=== PATIENT | female | born 1950 | race Caucasian/White ===

== ENCOUNTER 2019-02-23 17:27 | Emergency (ER) | payer MEDICARE | END 2019-02-23 18:50 | disposition home or self-care (01) | LOC: NAV ERS 17:27 | DX: S32.009A Unspecified fracture of unspecified lumbar vertebra, initial encounter for closed fracture (principal); E11.9 Type 2 diabetes mellitus without complications; E78.5 Hyperlipidemia, unspecified; E78.00 Pure hypercholesterolemia, unspecified; I10 Essential (primary) hypertension; F41.9 Anxiety disorder, unspecified; Z79.899 Other long term (current) drug therapy; X50.0XXA Overexertion from strenuous movement or load, initial encounter | CPT/HCPCS: 99283 ==

== ENCOUNTER 2019-09-13 09:22 | Outpatient (CLI) | payer MEDICARE ==
[~2019-09-13 09:22] MED LIST: Iopamidol 370 76% 100 ML VIAL ONE
--- NOTE | 2019-09-13 10:34 | CT ---
Exam: Chest CT with contrast HISTORY: Left lung adenocarcinoma. Left lobectomy. Surgery in 2010. Surgery in 2019. COMPARISON: Prior imaging was performed in [place] and is not available for for comparison. FINDINGS: Mediastinum: No mass, lymphadenopathy or hematoma. Heart: Heart size. No significant pericardial effusion Coronaries do not demonstrate significant atherosclerotic disease Aorta: Abdomen minimal atherosclerosis. No aneurysm, dissection or periaortic fat stranding Right hilum: Upper normal right hilar lymph node measuring 1.3 x 1.1 cm. Left hilum: No mass or lymphadenopathy Upper abdomen: Diminutive left kidney. Hypoattenuation liver due to hepatic steatosis. Trachea and central bronchi: Patent Right lung: Emphysematous change. Pleural-based nodule in the right lower lobe measures 0.6 cm. Scarr ing and atelectasis in the right lower lobe Left lung: Left upper lobectomy. Emphysematous changes. No suspicious masses, consolidation or nodule s. Scarring and atelectasis in the left lower lobe Chronic endplate changes with mild loss of vertebral body height at T8. IMPRESSION: 1. Slightly prominent right hilar lymph node. Comparison with prior imaging would be beneficial 2. Emphysema. Left upper lobectomy. 3. Pleural-based solid nodule in the right lower lobe. Comparison with prior imaging would be benefic ial.
== END 2019-09-13 09:23 | disposition home or self-care (01) ==
LOC: NAV CT 09:22
PROVIDERS: ATTEND Internal Medicine
DX: C34.92 Malignant neoplasm of unspecified part of left bronchus or lung (principal); J43.9 Emphysema, unspecified; R91.1 Solitary pulmonary nodule; Z90.2 Acquired absence of lung [part of]
CPT/HCPCS: 71260; Q9967

== ENCOUNTER 2023-08-27 11:28 | Emergency (ER) | payer MEDICARE | END 2023-08-27 12:34 | disposition home or self-care (01) | LOC: NAV ERS 11:28 | DX: E87.1 Hypo-osmolality and hyponatremia (principal) | CPT/HCPCS: 99283 ==